=== PATIENT | female | born 1990 | race Caucasian/White ===

== ENCOUNTER 2023-10-09 12:05 | Emergency (ER) | payer OTHER, SELFPAY ==
[2023-10-09 12:09] VITALS: BP 135/88; PULSE 98; RESP 18; TEMP 36.6; O2SAT 99
--- NOTE | 2023-10-09 16:30 | ED.ABDPAIN ---
HPI - Abdominal Pain General Chief Complaint: Abdominal Pain Stated Complaint: upper abd pain Time Seen by Provider: 10/09/23 16:02 History of Present Illness HPI narrative: 33-year-old female present to the emergency department for evaluation of epigastric pain. Patient states earlier today she received a Vistaril shot and developed epigastric pain that lasted approximately 30 minutes. At time of evaluation patient states that the pain has resolved. Related Data Allergies Allergy/AdvReac Type Severity Reaction Status Date / Time No Known Allergies Allergy Unverified 01/15/17 15:48 Review of Systems Review of Systems: All systems reviewed & are unremarkable except as noted in HPI and below Exam Narrative: APPEARANCE: Well appearing, no pain, no distress, well-nourished. HEAD: normocephalic, atraumatic. EYES: PERRLA/EOMI, conjunctivae clear. NOSE: Normal no drainage EARS:TMS clear with good light reflex. THROAT: Pharynx clear, no exudate. NECK: Supple. No adenopathy, no masses. RESPIRATORY: Airway patent, respirations nonlabored. Clear to auscultation bilaterally, no rales, rhonchi, wheezing. CARDIOVASCULAR: Regular rate and rhythm without murmurs rubs or gallops. ABDOMINAL: Soft, nontender, nondistended, normal bowel sounds MUSCULOSKELETAL: Moves all extremities. Strength/ROM intact, No edema, No calf tenderness. NEURO: Alert. Cranial nerves II through XII intact. Good gait. Good coordination SKIN: Warm, dry. Normal Color Course Course Emergency Course: Patient declined any labs and requested discharge to home as her symptoms had resolved. Vital Signs Vital signs: Vital Signs Temperature 97.9 F 10/09/23 12:09 Pulse Rate 98 10/09/23 12:09 Respiratory Rate 18 10/09/23 12:09 Blood Pressure 135/88 10/09/23 12:09 Pulse Oximetry 99 10/09/23 12:09 Oxygen Delivery Room Air 10/09/23 12:09 Temperature 97.9 F 10/09/23 12:09 Pulse Rate 98 10/09/23 12:09 Respiratory Rate 18 10/09/23 12:09 Blood Pressure 135/88 10/09/23 12:09 Pulse Oximetry 99 10/09/23 12:09 Oxygen Delivery Room Air 10/09/23 12:09 MDM - Abdominal Pain MDM Narrative Medical decision making narrative: 33-year-old female presents emergency department for evaluation of epigastric pain that has since resolved. Patient is preferring to be discharged from the emergency department since all symptoms are resolved. Patient will be started on omeprazole for possible gastritis, patient has been taking some doses of high-dose ibuprofen. Differential Diagnosis Differential diagnosis: Likely abdominal pain, diverticulitis, gastroenteritis and small bowel obstruction Discharge Plan Discharge Clinical Impression: Epigastric abdominal pain Patient Disposition: Home, Self-Care Condition: Stable Instructions: Antibiotic Form, Diet for Stomach Ulcers and Gastritis (ED), Abdominal Pain (ED) Additional Instructions: Avoid high-dose ibuprofen. Take omeprazole daily for the next 14 days. Have close follow-up with your primary care physician. Additionally you may need follow-up with GI. If you have any worsening symptoms then please call or return to the emergency department. Prescriptions: New omeprazole 20 mg tablet,delayed release (DR/EC) 20 mg PO DAILY 14 Days Qty: 14 0RF Follow-up/Referrals: PHYSICIAN,ACCOUNTING SYSTEMS MANAGER [Non-Staff] -
== END 2023-10-09 17:00 | disposition home or self-care (01) ==
LOC: ANHED 16:40
PROVIDERS: Emergency Provider Emergency Medicine
DX: R10.13 Epigastric pain (principal)
CPT/HCPCS: 99283